=== PATIENT | female | born 1925 | race Caucasian/White ===

== ENCOUNTER 2016-11-08 17:17 | Inpatient (IN) | payer OTHER, MEDICARE ==
--- NOTE | 2016-11-08 17:19 | NUR ---
TO EKG [facility].
--- NOTE | 2016-11-08 17:24 | NUR ---
PT TO ED WITH DAUGHTERS S/P SYNCOPE. DAUGHTER STATES PT GOT UP, FELT DIZZY AND FELL DENIES HEADSTRIKE. C/O B/L KNEE PAIN. EKG DONE, PT TAKEN TO ROOM 6 VIA STRETHCER.
--- NOTE | 2016-11-08 17:42 | ED GENERAL ADULT ---
History of Present Illness General Chief Complaint: Fall Stated Complaint: KNEE,BACK INJ.SYNCOPAL EPISODE Source: patient Exam Limitations: no limitations Vital Signs & Intake/Output Vital Signs & Intake/Output Vital Signs Date Time Temp Pulse Resp B/P B/P Pulse O2 O2 Flow FiO2 Mean Ox Delivery Rate 11/08 1944 98.1 65 18 155/71 94 11/08 1734 99.2 77 20 145/85 93 Room Air Allergies Coded Allergies: Sulfa (Sulfonamide Antibiotics) (ANAPHYLAXIS 11/08/16) Reconcile Medications Aspirin (Ecotrin*) 81 MG TABLET.DR 1 TAB PO DAILY HEART/BLOOD (Reported) Calcium Carbonate/Vitamin D3 (Calcium 600 + Vit D 400 Softgl) (Unknown Strength) CAPSULE 1 TAB PO BID SUPPLEMENT (Reported) Citalopram Hydrobromide (Citalopram HBr) 10 MG TABLET 1 TAB PO DAILY MENTAL HEALTH (Reported) Dexlansoprazole (Dexilant) 60 MG CAP.DR.BP 1 CAP PO BID GI (Reported) Isosorbide Mononitrate (Isosorbide Mononitrate ER) 60 MG TAB.ER.24H 0.5 TAB PO DAILY HEART (Reported) Lisinopril 10 MG TABLET 1 TAB PO DAILY BP (Reported) Rosuvastatin Calcium (Crestor) 20 MG TABLET 1 TAB PO DAILY CHOLESTEROL ( Reported) Triage Note: PT TO ED WITH DAUGHTERS S/P SYNCOPE. DAUGHTER STATES PT GOT UP, FELT DIZZY AND FELL DENIES HEADSTRIKE. C/O B/L KNEE PAIN. EKG DONE, PT TAKEN TO ROOM 6 VIA STRETHCER. Triage Nurses Notes Reviewed? yes Onset: Just prior to arrival Duration: hour(s): (1) Timing: no prior history Injury Environment: home Severity: moderate No Modifying Factors: none HPI: Patient is an 89-year-old female with history of dementia, hypertension presenting to the emergency department with questionable syncopal episode that happened prior to arrival. According to family members they heard a thud and found her on the ground. Patient does not recall the fall at all. Unsure if she hit her head or lost consciousness. Patient now complaining about neck and back pain. Also complaining about left knee pain. Pain is worse with movement. Denies any nausea or vomiting. No chest pain palpitations or shortness of breath. (KELLEY LUTHER,YOSSI) Past History Travel History Traveled to [place] past 21 day No Medical History Any Pertinent Medical History? see below for history Cardiovascular: hypertension, hyperlipidemia Surgical History Surgical History: non-contributory Psychosocial History Who do you live with Daughter Services at Home None What is your primary language Serbian Tobacco Use: Never used ETOH Use: denies use Illicit Drug Use: denies illicit drug use Family History Hx Contributory? No (YOSSI ODELL) Review of Systems Review of Systems Constitutional: Reports: weakness. Comments Review of systems: See HPI, All other systems negative. Constitutional, no chills fever or weight loss HEENT: No visual changes no sore throat no congestion Cardiovascular: No chest pain ,palpitation , orthopnea or ankle swelling Skin, no jaundice no rashes Respiratory: No dyspnea cough sputum or hemoptysis GI: No nausea no vomiting : No dysuria No hematuria Muscle skeletal: no back pain, no neck pain, Neurologic: No numbness no quijano Psych: No stress anxiety or depression,. Heme/endocrine: No bruising no bleeding no polyuria or polydipsia Immunology: No splenectomy or history of AIDS (YOSSI ODELL) Physical Exam Physical Exam General Appearance: no apparent distress, alert, awake Comments: Well-developed well-nourished person in no acute distress HEENT: extraocular motion intact, no nystagmus. Pupils equally round and reactive to light and accommodation. Nose is atraumatic. External auditory canal and Tympanic membranes clear. Pharynx normal. No swelling or edema. Slight dry oral mucosa. Slight crusting noted over the left upper eyelid at the lash line. Neck: Supple, no lymphadenopathy, normal range of motion without pain or tenderness, mild sinus to palpation over C7. Back: Tenderness to palpation along the cervical spine, thoracic spine and lumbar spine. No step-off deformities palpated. Negative straight leg raise bilaterally. No ecchymosis or signs of trauma noted on the back. Cardiovascular: Regular rate and rhythms no murmurs rubs or gallops, normal JVP Respiratory: Chest nontender. No respiratory distress.breath sounds clear to auscultation bilaterally Abdomen: Soft, nontender nondistended, no appreciable organomegaly. Normal bowel sounds. No ascites, no rebound or guarding area. On palpation pelvis appears stable. No pain. Extremity: No edema, no calf tenderness to palpation, normal and equal pulses. Tender to palpation over the left patella, somewhat limited range of motion of left knee secondary to pain. Able to straight leg raise both legs without difficulty. Refrigeration Mechanic strength is equal and symmetric bilaterally. Muscular strength is 4 out of 5 in all extremities. Neuro: Alert oriented person and place, confused about time and situation, motor sensory normal, cranial nerves II through XII grossly intact. Skin: No appreciable rash on exposed skin, skin is warm and dry. Psych: Mood and affect is normal, poor memory. (KELLEY LUTHER,YOSSI) Progress Differential Diagnoses I considered the following diagnoses in my evaluation of the patient: CVA, TIA, dehydration, electrolyte abnormality, cardiac arrhythmia, mechanical fall, knee contusion, knee fracture, intracranial bleed Plan of Care: Orders Procedure Date/time Status Heart Healthy Diet 11/09 B Active Misc Message 11/08 2100 Active ED Holding Orders 11/08 2100 Active Vital Signs 11/08 2100 Active Code Status 11/08 2100 Active Admit to inpatient 11/08 2034 Active URINALYSIS 11/08 175 Complete Add-on Test (ER Only) 11/08 175 Active MISTAKE 11/08 173 Active Telemetry/Documentation Billing Clerk 11/08 173 Active TROPONIN LEVEL 11/08 173 Complete COMPREHENSIVE METABOLIC PANEL 11/08 173 Complete CREATINE PHOSPHOKINASE 11/08 1733 Complete CBC WITHOUT DIFFERENTIAL 11/08 173 Complete EKG 11/08 1718 Active Current Medications Sig/Santo Start time Last Medication Dose Stop Time Status Admin Ceftriaxone Sodium 1,000 MG ONCE ONE 11/08 2114 UNVr (Rocephin) 11/09 2115 Sodium Chloride 1,000 ML ONCE ONE 11/08 2114 UNVr (Normal Saline 0.9%) 11/09 0354 Laboratory Tests 11/08/161926: Urine Color YEL, Urine Clarity CLEAR, Urine pH 5.5, Ur Specific [place] >= 1.030 , Urine Protein 30 H, Urine Ketones NEG, Urine Nitrite NEG, Urine Bilirubin NEG @ICTO, Urine Urobilinogen 0.2, Ur Leukocyte Esterase TRACE H, Ur Microscopic SEDIMENT EXAMINED, Urine RBC FEW H, Urine WBC 50-75 H, Ur Epithelial Cells MOD H, Hyaline Casts FEW H, Urine Mucus MOD H, Urine Hemoglobin NEG, Urine Glucose NEG 11/08/16 175: Anion Gap 12, Estimated GFR 47 L, BUN/Creatinine Ratio 20.0, Glucose 93, Calcium 10.0, Total Bilirubin 0.5, AST 21, ALT 24, Alkaline Phosphatase 76, Creatine Kinase 62, Troponin I 0.03, Total Protein 7.3, Albumin 4.1, Globulin 3.2, Albumin/Globulin Ratio 1.3, CBC w Diff NO MAN DIFF REQ, RBC 4.95, MCV 83.1, MCH 27.1, RDW 15.0 H, MPV 9.0, Gran % 56.3, Lymphocytes % 31.3, Monocytes % 9.2 , Eosinophils % 2.0, Basophils % 1.2, Absolute Granulocytes 4.0, Absolute Lymphocytes 2.2, Absolute Monocytes 0.7 H, Absolute Eosinophils 0.1, Absolute Basophils 0.1, PUBS MCHC 32.6 L Diagnostic Imaging: Viewed by Me: Radiology Read. Discussed w/RAD: Radiology Read. Radiology Impression: PATIENT: SOLOMON CANALES PRESENT AGE: 89 PATIENT ACCOUNT NO: [id number] : [birth year] LOCATION: [facility] ORDERING PHYSICIAN: YOSSI LUTHER SERVICE DATE: 11/08/16 EXAM TYPE: RAD - XRY-PORTABLE CHEST XRAY EXAMINATION: CHEST 1 VIEW CLINICAL INFORMATION: Syncope. Cardiomegaly. COMPARISON: 01/21/2014. TECHNIQUE: An AP view of the chest is provided. FINDINGS: The cardiac silhouette is enlarged, but stable. There are neither pleural effusions nor pneumothoraces. There are no consolidations. There is mild bibasilar atelectasis. The osseous structures are stable. IMPRESSION: Mild bibasilar atelectasis. No consolidations. DICTATED BY: MARIANNE FERRARO MD DATE/TIME DICTATED:11/08/161804 FELT MACHINE MECHANIC:PEDRO DATE/TIME TRANSCRIBED:11/08/161804 CONFIDENTIAL, DO NOT COPY WITHOUT APPROPRIATE AUTHORIZATION, PATIENT: SOLOMON CANALES PRESENT AGE: 89 PATIENT ACCOUNT NO: [id number] : [birth year] LOCATION: [facility] ORDERING PHYSICIAN: YOSSI LUTHER SERVICE DATE: 11/08/16183 EXAM TYPE: RAD - XRY-KNEE COMPLETE LEFT EXAMINATION: LEFT KNEE 3 VIEWS CLINICAL INFORMATION: Left knee pain after fall. COMPARISON: None. TECHNIQUE: AP, lateral , oblique views of the left knee were obtained. FINDINGS: There are no fractures or dislocations. There is no knee joint effusion. There is no significant soft tissue swelling. There is mild superior patellar spurring. There is mild narrowing to the medial compartment. IMPRESSION: Mild degenerative change to the left knee without evidence of acute injury. DICTATED BY: MARIANNE FERRARO MD DATE/ TIME DICTATED:11/08/161908 FELT MACHINE MECHANIC:PEDRO DATE/TIME TRANSCRIBED: 11/08/161908 CONFIDENTIAL, DO NOT COPY WITHOUT APPROPRIATE AUTHORIZATION. CXR Impression: ATIENT: SOLOMON CANALES PRESENT AGE: 89 PATIENT ACCOUNT NO: [id number] : [birth year] LOCATION: [facility] ORDERING PHYSICIAN: YOSSI LUTHER SERVICE DATE: 11/08/16 EXAM TYPE: RAD - XRY- PORTABLE CHEST XRAY EXAMINATION: CHEST 1 VIEW CLINICAL INFORMATION: Syncope. Cardiomegaly. COMPARISON: 01/21/2014. TECHNIQUE: An AP view of the chest is provided. FINDINGS: The cardiac silhouette is enlarged, but stable. There are neither pleural effusions nor pneumothoraces. There are no consolidations. There is mild bibasilar atelectasis. The osseous structures are stable. IMPRESSION: Mild bibasilar atelectasis. No consolidations. DICTATED BY: MARIANNE FERRARO MD DATE/TIME DICTATED:11/08/161804 FELT MACHINE MECHANIC:PEDRO Initial ED EKG: nsr with pvc, 74 bpm Comments: On arrival patient's vitals are stable, neurologically intact but patient is only oriented to person, confused about time and situation. This is baseline for patient. Unclear history. Family informed of all imaging results. Cannot exclude TIA or other process causing syncope. No acute findings on CT scan. Patient will be admitted for observation telemetry for syncope. Rule out CVA. Patient may need MRI in the morning. Physical therapy consultation. Discharge at this time could be medically harmful as patient can go home and follow again. (KELLEY LUTHER,YOSSI) Comments: 11/08/2016 9:15:21 PM I have updated her and her family on test results. IV fluids ordered along with a dose of Rocephin given the appearance of the urine. (JASWINDER AMADOR,NIKA D) Departure Departure Disposition: STILL A PATIENT Condition: Stable Clinical Impression Primary Impression: Syncope Qualifiers: Syncope type: unspecified Qualified Code: R55 - Syncope and collapse Referrals: TANIA ARELLANO MD (PCP/Family) Departure Forms: Customer Survey General Discharge Information (KELLEY LUTHER,YOSSI) Admission Note Spoke With: ОЛЕГ SOLOMON MD Documentation of Exam: Documentation of any treatments & extenuating circumstances including Concerns Regarding Discharge (functional status, medication knowledge or non-compliance, living conditions, etc.) that warrant an admission rather than observation: Patient presents for evaluation of injury sustained status post fall. At this point it is unclear if the patient had a true fainting episode or not. A fainting episode would place this patient at risk of cardiac dysrhythmia with subsequent hypotension and possibly even . The patient a poor candidate for outpatient management as I think it would be appropriate for her to be on continuous cardiac catheterization technologist to assess for possible dysrhythmia. She could potentially return in worse clinical condition and a particular additional injury status post fall. In addition patient should have cardiology consultation to rule out valve disease or cardiomyopathy. In addition the patient has a urinalysis strongly suggestive of urinary tract infection, placing her at risk of altered mental status and urosepsis. This will require aggressive management with IV antibiotics. Finally the patient has elevations in BUN and creatinine consistent with volume depletion and IV fluids should be administered. Given the patient's age and medical comorbidities I feel she'll require a multiple day hospitalization. (JASWINDER AMADOR,NIKA Antoine)
--- NOTE | 2016-11-08 18:00 | NUR ---
LABS DRAWN AND SENT, LAV,SST,BLUE,PINK,DECKER TOP SENT AT THIS TIME.
[2016-11-08 18:06] LABS: ABSOLUTE BASOPHIL COUNT 0.1 /CUMM (0.0-0.2); ABSOLUTE EOSINOPHIL COUNT 0.1 /CUMM (0.0-0.7); ABSOLUTE LYMPH COUNT 2.2 /CUMM (1.2-3.4); ABSOLUTE MONOCYTE COUNT 0.7 /CUMM (0.10-0.60); BASOPHIL % 1.2 % (0.0-2.0); GRANULOCYTE % 56.3 % (42.2-75.2); HEMATOCRIT 41.2 % (37-47); MEAN CORPUSCULAR HGB 27.1 PG (27.0-31.0); MEAN CORPUSCULAR HGB CONC 32.6 G/DL (33.0-37.0); MEAN CORPUSCULAR VOLUME 83.1 FL (81.0-99.0); PLATELET COUNT 192 /CUMM (130-400); RED BLOOD CELL CT 4.95 /CUMM (4.20-5.40); WHITE BLOOD CELL COUNT 7.1 /CUMM (4.8-10.8)
--- NOTE | 2016-11-08 18:09 | RADIOLOGY REPORT ---
EXAMINATION: CHEST 1 VIEW CLINICAL INFORMATION: Syncope. Cardiomegaly. COMPARISON: 01/21/2014. TECHNIQUE: An AP view of the chest is provided. FINDINGS: The cardiac silhouette is enlarged, but stable. There are neither pleural effusions nor pneumothoraces. There are no consolidations. There is mild bibasilar atelectasis. The osseous structures are stable. IMPRESSION: Mild bibasilar atelectasis. No consolidations.
[2016-11-08] MEDS ORDERED: CITALOPRAM HBR10 MG PO (18:10)
[2016-11-08] MEDS ORDERED: ISOSORBIDE MONO60 M1 PO (18:11)
[2016-11-08] MEDS ORDERED: LISINOPRIL10 M1 PO (18:11)
[2016-11-08] MEDS ORDERED: CRESTOR20 M2 PO (18:11)
[2016-11-08] MEDS ORDERED: DEXILANT60 M1 PO (18:11)
[2016-11-08] MEDS ORDERED: CALCIUM 600 +1 EAC4 PO (18:12)
[2016-11-08] MEDS ORDERED: ASPIRIN EC81 M1 PO (18:12)
--- NOTE | 2016-11-08 18:48 | CT SCAN REPORT ---
EXAMINATIONS: CT HEAD WITHOUT CONTRAST AND CT CERVICAL SPINE WITHOUT CONTRAST AND CT THORACIC SPINE WITHOUT CONTRAST AND CT LUMBAR SPINE WITHOUT CONTRAST CLINICAL INFORMATION: Pain following injury. Trauma to head. Trauma to back. COMPARISON: None. TECHNIQUE: Contiguous helical images of the brain were obtained without IV contrast. Contiguous helical images of the cervical, thoracic and lumbar spine were obtained without IV contrast. Multiplanar reconstructions were performed. DLP: 854 mGy-cm. FINDINGS: There are no pathologic extra-axial fluid collections. The lateral, third, fourth ventricles are prominent, but age-appropriate and concordant with the appearance of the sulci. There is no evidence for acute intraparenchymal hemorrhage or infarct. There is periventricular low-attenuation present indicative of small vessel disease. There is neither mass nor mass effect. There is no shift of midline structures. The paranasal sinuses and mastoid air cells are clear. There are no osseous lesions. The cervical vertebra are in normal alignment. Disc heights and vertebral heights are well-preserved. There are no fractures. There is no prevertebral soft tissue swelling. There is anterior osteophyte formation within the mid to lower cervical spine. The thoracic and lumbar vertebra are in normal alignment. There is complete disc height loss at L4/L5 with partial fusion of the vertebral bodies. Disc heights and vertebral body heights are otherwise well-preserved. There are no acute fractures demonstrable. There is mild anterior osteophyte formation within the thoracic spine. Partially visualized is sigmoid diverticulosis without evidence of diverticulitis. There is no cervical lymphadenopathy. The visualized lung apices are clear. Within both lung bases, there is peripheral interlobular septal thickening with some subpleural cyst formation. IMPRESSION: No evidence for acute intracranial injury. No evidence for acute injury to the cervical spine. Degenerative change as stated above. Interstitial changes within both lower lobes.
--- NOTE | 2016-11-08 19:14 | RADIOLOGY REPORT ---
EXAMINATION: LEFT KNEE 3 VIEWS CLINICAL INFORMATION: Left knee pain after fall. COMPARISON: None. TECHNIQUE: AP, lateral, oblique views of the left knee were obtained. FINDINGS: There are no fractures or dislocations. There is no knee joint effusion. There is no significant soft tissue swelling. There is mild superior patellar spurring. There is mild narrowing to the medial compartment. IMPRESSION: Mild degenerative change to the left knee without evidence of acute injury.
--- NOTE | 2016-11-08 19:32 | NUR ---
BETINA LUTZ SENT TO LAB
--- NOTE | 2016-11-08 22:27 | NUR ---
PT MEDICATED WITH NS BOLUS AND ROCEPHIN PER EMAR. PT PROVIDED WITH CALL SAN AND EDUCATED NOT GET UP WITHOUT HELP, PT VERBALIZES UNDERSTANDING.
[2016-11-09 00:33] VITALS: BP 168/80
--- NOTE | 2016-11-09 01:12 | History & Physical ---
NINA KITCHEN MD 11/09/16 0112: General Information and HPI MD Statement: I have seen and personally examined SOLOMON CANALES and documented this H&P. The patient is a 89 year old F who presented with a patient stated chief complaint of fall. Source of Information: patient, family, old records Exam Limitations: dementia History of Present Illness: 89 year old female with past medical history of melanoma, hypertension, hyperlipidemia and dementia presents with chief complaint of unwitnessed fall. Patient lives at home and her daughter assists her in iADLs and medication management. She has baseline dementia and uses a walker at home. Her family heard a loud noise and found the patient on the floor. They denied any post ictal confusion, loss of consciousness, or urinary or bowel incontinence. They were unsure if there were any head trauma as a result of the fall. Patient was complaining of some intermittent left-sided chest pain but denies any other symptoms. Allergies/Medications Allergies: Coded Allergies: Sulfa (Sulfonamide Antibiotics) (ANAPHYLAXIS 11/08/16) Home Med list Aspirin (Ecotrin*) 81 MG TABLET.DR 1 TAB PO DAILY HEART/BLOOD (Reported) Calcium Carbonate/Vitamin D3 (Calcium 600 + Vit D 400 Softgl) (Unknown Strength) CAPSULE 1 TAB PO BID SUPPLEMENT (Reported) Citalopram Hydrobromide (Citalopram HBr) 10 MG TABLET 1 TAB PO DAILY MENTAL HEALTH (Reported) Dexlansoprazole (Dexilant) 60 MG CAP.DR.BP 1 CAP PO BID GI (Reported) Isosorbide Mononitrate (Isosorbide Mononitrate ER) 60 MG TAB.ER.24H 0.5 TAB PO DAILY HEART (Reported) Lisinopril 10 MG TABLET 1 TAB PO DAILY BP (Reported) Rosuvastatin Calcium (Crestor) 20 MG TABLET 1 TAB PO DAILY CHOLESTEROL ( Reported) Compliance With Home Meds: GOOD Past History Travel History Traveled to [place] past 21 day No Medical History Cardiovascular: hypertension, hyperlipidemia Surgical History Surgical History: non-contributory Past Family/Social History Psychosocial History Services at Home: None ETOH Use: denies use Illicit Drug Use: denies illicit drug use Review of Systems Review of Systems Constitutional: Reports: see HPI. Exam & Diagnostic Data Last 24 Hrs of Vital Signs/I&O Vital Signs Date Time Temp Pulse Resp B/P B/P Pulse O2 O2 Flow FiO2 Mean Ox Delivery Rate 11/09 0033 62 16 168/80 96 Room Air 11/08 194 98.1 65 18 155/71 94 11/08 1734 99.2 77 20 145/85 93 Room Air Intake & Output 11/09 0800 11/09 0000 11/08 1600 Intake Total 1000 Output Total 350 Balance -350 1000 Intake, IV 1000 Output, Urine 350 Physical Exam General Appearance Alert, Oriented X3, Cooperative, No Acute Distress Skin No Rashes, No Breakdown Skin Temp/Moisture Exam: Warm/Dry Cardiovascular Regular Rate, Normal S1, Normal S2, No Murmurs Lungs Clear to Auscultation, Normal Air Movement Abdomen Normal Bowel Sounds, Soft, No Tenderness, No Masses Neurological Strength at 5/5 X4 Ext, Normal Tone, Sensation Intact, Cranial Nerves 3-12 NL Extremities No Edema, Normal Pulses, RLE melanoma excision and skin graft Last 24 Hrs of Labs/John: Laboratory Tests 11/08/161926: Urine Color YEL, Urine Clarity CLEAR, Urine pH 5.5, Ur Specific [place] >= 1.030 , Urine Protein 30 H, Urine Ketones NEG, Urine Nitrite NEG, Urine Bilirubin NEG @ICTO, Urine Urobilinogen 0.2, Ur Leukocyte Esterase TRACE H, Ur Microscopic SEDIMENT EXAMINED, Urine RBC FEW H, Urine WBC 50-75 H, Ur Epithelial Cells MOD H, Hyaline Casts FEW H, Urine Mucus MOD H, Urine Hemoglobin NEG, Urine Glucose NEG 11/08/16 175: Anion Gap 12, Estimated GFR 47 L, BUN/Creatinine Ratio 20.0, Glucose 93, Calcium 10.0, Total Bilirubin 0.5, AST 21, ALT 24, Alkaline Phosphatase 76, Creatine Kinase 62, Troponin I 0.03, Total Protein 7.3, Albumin 4.1, Globulin 3.2, Albumin/Globulin Ratio 1.3, CBC w Diff NO MAN DIFF REQ, RBC 4.95, MCV 83.1, MCH 27.1, RDW 15.0 H, MPV 9.0, Gran % 56.3, Lymphocytes % 31.3, Monocytes % 9.2 , Eosinophils % 2.0, Basophils % 1.2, Absolute Granulocytes 4.0, Absolute Lymphocytes 2.2, Absolute Monocytes 0.7 H, Absolute Eosinophils 0.1, Absolute Basophils 0.1, PUBS MCHC 32.6 L Microbiology 11/08 1926 URINE ROUT: Urine Culture - RECD Diagnostic Data EKG Results nsr, lvh, lad Assessment/Plan Assessment: 89 year old female with past medical history of melanoma, hypertension, hyperlipidemia and dementia who presents to the ED after an unwitnessed fall at home. 1. Unwitnessed fall: patient denies any prodromal symptoms associated with fall Monitor on telemetry will rule out arrhythmia/vasovagal syncope/orthostatic hypotension Check orthostatic vital signs Follow up troponin/EKG, first was negative for ischemia or arrythmia Continue ASA and Imdur Cardiology consult Consider echocardiogram and carotid doppler 2. Acute Kidney Injury: Cr 1.1 currently, baseline ~0.8, BUN/Cr ratio 20, [place] likely prerenal, dehydration may have contributed to fall, will hydrate and reassess Hold JOYA inhibitor NS @ 75cc/hr Trend renal function, BUN and Cr 3. Hypertension: Continue Imdur, lisinopril on hold 4. Asymptomatic bacteriuria: Patient had urinalysis suggestive of infection Received one dose of ceftriaxone in ED Urine culture will follow up 5. Hyperlipidemia: Statin therapy, lipitor 40mg 6. Continue home medications: Celexa and Prilosec PT Evaluation Heart healthy diet DVT ppx-heparin Full code As Ranked By This Provider Problem List: 1. Syncope Qualifiers Syncope type: unspecified Qualified Code: R55 - Syncope and collapse 2. Benign essential hypertension Core Measures/Miscellaneous Acute Coronary Syndrome ACS Diagnosis: No Cerebrovascular Accident CVA/TIA Diagnosis: No Congestive Heart Failure CHF Diagnosis: No VTE (View Protocol) VTE Risk Factors: Acute medical illness, Age > 40 No [facility] VTE prophylaxis d/t: No contraindications No VTE Pharm Prophylaxis d/t: No contraindications VTE Diagnosis: No VTE Type: NONE VTE Confirmed by (Test): NONE Sepsis (View Protocol) Severe Sepsis Present: No Septic Shock Septic Shock Present: No Miscellaneous Documentation Attending Case Discussed With: TANIA ARELLANO MD Primary Care Physician: TANIA ARELLANO MD Patient sees these Specialists none Level of Patient Care: Telemetry TYSON COLLIER 11/09/16 0113: Resident Review Statement Resident Statement: examined this patient, discussed with chemistry intern, agreed with chemistry intern Other Findings: Patient is 89-year-old Nauruan speaking female with past medical history significant for malignant melanoma status post excision and grafting, hypertension, dyslipidemia and dementia brought in the ER by family after an unwitnessed fall. Patient was very confused and was not able to give his proper history and most of the history was taken from her daughter Anai on phone. According to her patient lived at home and all her care was taken by her daughter. She had baseline dementia and use walker for ambulation at home. Today her family heard her third and when they went in the room her mother on the floor but they denied any confusion, loss of consciousness, any pre-or post fall is urinary or bowel incontinence. Patient was complaining of some off-and- on left-sided chest pain. No history of recent fever, chills, dizziness, headache, chest pain, palpitations or any sick contacts. It wasn't sure if she hit her head or not. The signs and admission were temperature 99.2, pulse 97, respiratory rate 20, blood pressure 145/85 and she was saturating to 93% on room air. Labs were WBC count 7.1, hemoglobin 13.4, hematocrit 41.2, platelet count 192, Sodium 138, potassium 4.1, BUNs 22, creatinine 1.1, urinalysis showed trace leukocyte esterase, WBC count 50-75 with moderate epithelial cells, few hyaline casts and moderate urine mucus. On imaging studies including CT head, chest x-ray, cervical, lumbar and thoracic spine along with x-ray knee negative for any acute fracture or pathology EKG showed normal sinus rhythm with no acute ST-T wave changes On physical examination Patient is alert but not oriented to place Head atraumatic Neck supple Chest clear to auscultate Heart S1-S2 normal with no added sounds Abdomen soft. No organomegaly Lower extremities showed no edema or cyanosis No neurological deficit noted. Assessment and plan 89-year-old Nauruan female with history of malignant melanoma, hypertension, dyslipidemia and dementia who came after an unwitnessed fall and we will rule out any cardiac arrhythmias/orthostatic hypotension/vasovagal syncope. On admission her urine cement was dirty and was given a dose of ceftriaxone in ER. Problem list 1. Unwitnessed fall will rule out arrhythmia/vasovagal syncope/orthostatic hypotension 2. History of hypertension 3. AK I most likely due to dehydration/UTI 4. Asymptomatic bacteriuria 5. History of dementia 6. History of dyslipidemia 7. History of malignant melanoma left lower extremity status post excision and graft Plan 1. We will observe patient on telemetry floor for 24 hours to rule out any arrhythmias 2. Her first set of troponin was negative we will consider repeating another . 3. Her creatinine is slightly higher than normal we will hold lisinopril and will hydrate her and repeat labs in a.m. 4. Urinalysis on admission shows leukocyte esterase and 50-75 WBCs. Patient was given ceftriaxone in ER and we will continue and sent a urine culture. Night any symptoms but given her dementia we would treat her UTI. 5. We will continue her home medications except lisinopril but we will resume on discharge. 6. We'll consider physical therapy evaluation in a.m. 7. We will consider cardiology evaluation in a.m. if needed 8. Orthostatics were done in ER and they were borderline positive regarding falls as it increased from 77-89 from lying to sitting. We will repeat orthostatics in a.m. after hydrating her. Patient is full code Pharmacological DVT prophylaxis Heart healthy diet EILEEN AMADOR,[facility] 11/09/16 1001: Attending MD Review Statement Attending Statement Attending MD Statement: examined this patient, discuss w/resident/PA/MOCK UP MAKER, agreed w/resident/PA/MOCK UP MAKER, reviewed EMR data (avail)
--- NOTE | 2016-11-09 02:06 | NUR ---
PT TO BEDSIDE COMMODE WITH VERY SLOW MOVEMENT AND MINIMAL ASSIST OF ONE. VOIDED 350 CC'S. URINE EARLY CHILDHOOD EDUCATION WORKER YELLOW THAN PREVIUS VOID. PT BACK TO BED. NS INFUSING AT 75 ML/HR. MEDICATED WIHT 5000 UNITS HEPARIN SC ORDERED. LIGHTS DIMMED FOR COMFORT
--- NOTE | 2016-11-09 05:45 | NUR ---
PT OOB TO BEDSIDE COMMODE. SLOW AND STEADY, INDEPENDENTLY. BACK TO BED
--- NOTE | 2016-11-09 06:06 | NUR ---
BLOOD DRAWN AND SENT TO LAB.
[2016-11-09 06:11] LABS: ABSOLUTE BASOPHIL COUNT 0 /CUMM (0.0-0.2); ABSOLUTE EOSINOPHIL COUNT 0.2 /CUMM (0.0-0.7); ABSOLUTE LYMPH COUNT 1.7 /CUMM (1.2-3.4); ABSOLUTE MONOCYTE COUNT 0.5 /CUMM (0.10-0.60); BASOPHIL % 0.5 % (0.0-2.0); EOSINOPHIL % 2.5 % (0-5); GRANULOCYTE % 62.3 % (42.2-75.2); HEMATOCRIT 39.2 % (37-47); MEAN CORPUSCULAR HGB 27.3 PG (27.0-31.0); MEAN CORPUSCULAR HGB CONC 32.9 G/DL (33.0-37.0); MEAN PLATELET VOLUME 8.5 FL (7.4-10.4); PLATELET COUNT 158 /CUMM (130-400); RED BLOOD CELL CT 4.73 /CUMM (4.20-5.40); WHITE BLOOD CELL COUNT 6.4 /CUMM (4.8-10.8)
--- NOTE | 2016-11-09 08:36 | NUR ---
PT CONTINUES TO SLEEP, WILL MEDICATE WITH PRILOSEC ONCE AWAKE
[2016-11-09 09:04] VITALS: BP 158/76
--- NOTE | 2016-11-09 09:09 | NUR ---
PT REFUSED HER PRILOSEC MEDICATION
--- NOTE | 2016-11-09 09:24 | NUR ---
DR ARELLANO IN ROOM TO KALINA.
--- NOTE | 2016-11-09 09:54 | Admission Certification ---
Admission Certification Certification Statement - As attending physician, I certify that at the time of - admission, based on clinical presentation, severity of - symptoms, need for further diagnostic testing and - therapeutic interventions, and risk of adverse outcomes - without in-hospital treatment, in my clinical assessment, - this patient requires an acute hospital stay for a minimum - of two nights or longer. I have also considered psychsocial - factors such as support system, advanced age, financial - issues, cognitive issues, and failed out-patient treatments, - past re-admission history, safety of patient, and lack of - compliance as applicable. Specific rationale supporting this admission is: Syncope
--- NOTE | 2016-11-09 10:01 | PN- Att Addend ---
Attending Addendum Attending Brief Note Patient on evaluation this morning has no complaints except for requesting for discharge home. She denies passing out or having lightheadedness or dizziness prior to her fall. However history is somewhat difficult to get. General Appearance: Alert, No Acute Distress Skin: Grossly normal HEENT: PEERLA Neck: Supple, No JVD Cardiovascular: Regular Rate, Normal S1, Normal S2, No Murmurs Lungs: Clear to Auscultation, Normal Air Movement Abdomen: Normal Bowel Sounds, Soft, No Tenderness Neurological: Normal Speech, Strength at 5/5 X4 Ext, Cranial Nerves 3-12 NL, Reflexes 2+ Extremities: No Clubbing, No Cyanosis, No Edema Vascular: Normal Pulses Assessment 89-year-old female with history of melanoma, hypertension, dyslipidemia and dementia who recently lost her about 3 months ago now presenting with an unwitnessed fall. Patient was found on the floor by her family. Based on the limited history given to me by the patient she did not lose consciousness or have any prodromal syndrome prior to passing out. Her telemetry has not shown any arrhythmias since admission. Patient does not give any history of urinary discomfort. She does not have fever or leukocytosis and are likely has a UTI. We will follow off antibiotics and physical therapy evaluation for STR placement. In the meantime will monitor on telemetry and check orthostatics. Plan Discontinue antibiotics Check orthostatics Monitor on telemetry Continue home medications PT evaluation DVT prophylaxis Current Medications Sig/Santo Start time Last Medication Dose Route Stop Time Status Admin Acetaminophen 650 MG Q6P PRN 11/09 0115 AC PO Acetaminophen/ 1 TAB Q6P PRN 11/09 0115 AC Hydrocodone Bitart PO Aspirin Buffered 81 MG DAILY 11/09 1000 AC PO Atorvastatin Calcium 40 MG 1700 11/09 1700 AC PO Ceftriaxone Sodium 1,000 MG DAILY 11/09 1000 AC IV Ceftriaxone Sodium 0 .STK-MED ONE 11/08 2221 DC .ROUTE Ceftriaxone Sodium 1,000 MG ONCE ONE 11/08 2114 DC 11/08 IV 11/08 Citalopram 10 MG DAILY 11/09 1000 AC Hydrobromide PO Heparin Sodium 0 .STK-MED ONE 11/09 0150 DC (Porcine) .ROUTE Heparin Sodium 5,000 UNIT Q8 11/09 0109 AC 11/09 (Porcine) SC 0150 Isosorbide 30 MG DAILY 11/09 1000 AC Mononitrate PO Omeprazole 40 MG DAILY AC 11/09 0700 AC PO Oxycodone HCl 10 MG Q6P PRN 11/09 0115 AC PO Sodium Chloride 1,000 ML Q13H 11/09 0115 AC 11/09 IV 0150 Sodium Chloride 1,000 ML ONCE ONE 11/08 2114 DC 11/08 IV 11/09 0354 2226 Laboratory Tests 11/09 11/08 0605 1927 Chemistry Sodium (137 - 145 mmol/L) 137 Potassium (3.5 - 5.1 mmol/L) 3.9 Chloride (98 - 107 mmol/L) 105 Carbon Dioxide (22 - 30 mmol/L) 25 Anion Gap (5 - 16) 7 BUN (7 - 17 mg/dL) 16 Creatinine (0.5 - 1.0 mg/dL) 0.9 Estimated GFR (>60 ml/min) 59 L BUN/Creatinine Ratio (7 - 25 %) 17.8 Troponin I (< 0.11 ng/ml) 0.04 Hematology CBC w Diff NO MAN DIFF REQ WBC (4.8 - 10.8 /CUMM) 6.4 RBC (4.20 - 5.40 /CUMM) 4.73 Hgb (12.0 - 16.0 G/DL) 12.9 Hct (37 - 47 %) 39.2 MCV (81.0 - 99.0 FL) 83.0 MCH (27.0 - 31.0 PG) 27.3 RDW (11.5 - 14.5 %) 15.0 H Plt Count (130 - 400 /CUMM) 158 MPV (7.4 - 10.4 FL) 8.5 Gran % (42.2 - 75.2 %) 62.3 Lymphocytes % (20.5 - 51.1 %) 26.9 Monocytes % (1.7 - 9.3 %) 7.8 Eosinophils % (0 - 5 %) 2.5 Basophils % (0.0 - 2.0 %) 0.5 Absolute Granulocytes (1.4 - 6.5 /CUMM) 4.0 Absolute Lymphocytes (1.2 - 3.4 /CUMM) 1.7 Absolute Monocytes (0.10 - 0.60 /CUMM) 0.5 Absolute Eosinophils (0.0 - 0.7 /CUMM) 0.2 Absolute Basophils (0.0 - 0.2 /CUMM) 0 PUBS MCHC (33.0 - 37.0 G/DL) 32.9 L Urines Urine Color (YEL,AMB,STR) YEL Urine Clarity (CLEAR) CLEAR Urine pH (5.0 - 8.0) 5.5 Ur Specific [place] (1.001 - 1.035) >= 1.030 Urine Protein (NEG,<30 MG/DL) 30 H Urine Ketones (NEG) NEG Urine Nitrite (NEG) NEG Urine Bilirubin (NEG) NEG@ICTO Urine Urobilinogen (0.1 - 1.0 EU/dl) 0.2 Ur Leukocyte Esterase (NEG) TRACE H Ur Microscopic SEDIMENT EXAMINED Urine RBC (0 - 5 /HPF) FEW H Urine WBC (0 - 2 /HPF) 50-75 H Ur Epithelial Cells (NONE,FEW) MOD H Hyaline Casts (0/LPF) FEW H Urine Mucus (FEW,NONE) MOD H Urine Hemoglobin (NEG) NEG Urine Glucose (N MG/DL) NEG 11/08 1758 Chemistry Sodium (137 - 145 mmol/L) 138 Potassium (3.5 - 5.1 mmol/L) 4.1 Chloride (98 - 107 mmol/L) 103 Carbon Dioxide (22 - 30 mmol/L) 22 Anion Gap (5 - 16) 12 BUN (7 - 17 mg/dL) 22 H Creatinine (0.5 - 1.0 mg/dL) 1.1 H Estimated GFR (>60 ml/min) 47 L BUN/Creatinine Ratio (7 - 25 %) 20.0 Glucose (65 - 99 mg/dL) 93 Calcium (8.4 - 10.2 mg/dL) 10.0 Total Bilirubin (0.2 - 1.3 mg/dL) 0.5 AST (14 - 36 U/L) 21 ALT (9 - 52 U/L) 24 Alkaline Phosphatase (<127 U/L) 76 Creatine Kinase (30 - 135 U/L) 62 Troponin I (< 0.11 ng/ml) 0.03 Total Protein (6.3 - 8.2 g/dL) 7.3 Albumin (3.5 - 5.0 g/dL) 4.1 Globulin (1.9 - 4.2 gm/dL) 3.2 Albumin/Globulin Ratio (1.1 - 2.2 %) 1.3 Hematology CBC w Diff NO MAN DIFF REQ WBC (4.8 - 10.8 /CUMM) 7.1 RBC (4.20 - 5.40 /CUMM) 4.95 Hgb (12.0 - 16.0 G/DL) 13.4 Hct (37 - 47 %) 41.2 MCV (81.0 - 99.0 FL) 83.1 MCH (27.0 - 31.0 PG) 27.1 RDW (11.5 - 14.5 %) 15.0 H Plt Count (130 - 400 /CUMM) 192 MPV (7.4 - 10.4 FL) 9.0 Gran % (42.2 - 75.2 %) 56.3 Lymphocytes % (20.5 - 51.1 %) 31.3 Monocytes % (1.7 - 9.3 %) 9.2 Eosinophils % (0 - 5 %) 2.0 Basophils % (0.0 - 2.0 %) 1.2 Absolute Granulocytes (1.4 - 6.5 /CUMM) 4.0 Absolute Lymphocytes (1.2 - 3.4 /CUMM) 2.2 Absolute Monocytes (0.10 - 0.60 /CUMM) 0.7 H Absolute Eosinophils (0.0 - 0.7 /CUMM) 0.1 Absolute Basophils (0.0 - 0.2 /CUMM) 0.1 PUBS MCHC (33.0 - 37.0 G/DL) 32.6 L Vital Signs Date Time Temp Pulse Resp B/P B/P Pulse O2 O2 Flow FiO2 Mean Ox Delivery Rate 11/09 0904 97.4 62 15 158/76 95 Room Air 11/09 0730 97.4 62 15 181/96 96 Room Air 11/09 0615 97.4 62 16 171/76 96 Room Air 11/09 0033 98.1 62 16 168/80 96 Room Air 11/08 1944 98.1 65 18 155/71 94 11/08 1734 99.2 77 20 145/85 93 Room Air
[2016-11-09 10:07] VITALS: BP 158/76
--- NOTE | 2016-11-09 10:07 | NUR ---
MEDICATED WITH IMDUR, CELEXA, ASPIRIN, AND ROCEPHIN (SEE MAR)
--- NOTE | 2016-11-09 11:38 | Patient Discharge Instructions ---
Discharge Instructions General Discharge Information You were seen/treated for: Unwitnessed fall Special Instructions: #1 please follow-up with your PCP within 1 week of discharge Acute Coronary Syndrome Inclusion Criteria At DC or during hospital stay patient has or had the following: ACS DIAGNOSIS No Discharge Core Measures Meds if any: Prescribed or Continued at Discharge Meds if any: NOT Prescribed or Continued at Discharge Congestive Heart Failure Inclusion Criteria At DC or during hospital stay patient has or had the following: CHF DIAGNOSIS No Discharge Core Measures Meds if any: Prescribed or Continued at Discharge Meds if any: NOT Prescribed or Continued at Discharge Cerebrovascular accident Inclusion Criteria At DC or during hospital stay patient has or had the following: CVA/TIA Diagnosis No Discharge Core Measures Meds if any: Prescribed or Continued at Discharge Meds if any: NOT Prescribed or Continued at Discharge Venous thromboembolism Inclusion Criteria VTE Diagnosis No VTE Type NONE VTE Confirmed by (Test) NONE Discharge Core Measures - Per Current guidelines, there needs to be overlap - treatment for the first 5 days of Warfarin therapy. - If discharged on Warfarin prior to 5 days of - overlap therapy, the patient will need to be - assessed for post discharge needs including - *Post discharge parental anticoagulation - *Warfarin and/or parental anticoagulation education - *Follow up date to check INR post discharge At least 5 days overlap therapy as Inpatient No Meds if any: Prescribed or Continued at Discharge Note: Overlap Therapy is Warfarin and Anticoagulant Meds if any: NOT Prescribed or Continued at Discharge
--- NOTE | 2016-11-09 11:55 | NUR ---
11/09 CASE MGMT- CALL FROM DR PARKER INQUIRING IF PT IS HHS OR STR? SPO HUSEYIN GUERRA FROM PT AND SOMEONE WILL BE DOWN TO EVALUATE PT. CASE MGMT WILL CONTINUE TO FOLLOW.
--- NOTE | 2016-11-09 11:59 | PN-Observation ---
Assessment/Plan Assessment: 89 year old female with past medical history of melanoma, hypertension, hyperlipidemia and dementia who presents to the ED after an unwitnessed fall at home. #Unwitnessed fall: - patient denies any prodromal symptoms or confusion associated with fall, - history was hard to be obtained in details as the patient is Faroese speaking , will confirm with the family -Monitor on telemetry will rule out arrhythmia/vasovagal syncope/orthostatic hypotension -Check orthostatic vital signs Follow up troponin/EKG were negative for ischemia which r/0 ACS also no arrythemia was detected over night Continue ASA and Imdur Cardiology consult Consider echocardiogram and carotid doppler #Acute Kidney Injury: improved Cr 0.8<---1.1 currently, [place] likely prerenal due to dehydration may have contributed to fall, improved after rehydration and holding ACEI NS @ 75cc/hr Trend renal function, BUN and Cr # Hypertension: Continue Imdur, lisinopril on hold # Asymptomatic bacteriuria: Patient had urinalysis suggestive of infection DC antibiotics as per Dr Hollins Urine culture will follow up 5. Hyperlipidemia: Statin therapy, lipitor 40mg 6. Continue home medications: Celexa and Prilosec PT Evaluation Heart healthy diet
--- NOTE | 2016-11-09 12:08 | Discharge Summary ---
Visit Information Visit Dates Admission Date: 11/08/16 Hospital Course Course Attending Physician: TANIA ARELLANO MD Primary Care Physician: TANIA ARELLANO MD Hospital Course: Patient is 89-year-old Albanian speaking female with past medical history significant for malignant melanoma status post excision and grafting, hypertension, dyslipidemia and dementia brought in the ER by family after an unwitnessed fall. On imaging studies including CT head, chest x-ray, cervical, lumbar and thoracic spine along with x-ray knee negative for any acute fracture or pathology EKG showed normal sinus rhythm with no acute ST-T wave changes Patient was treated in the hospital for: #Unwitnessed fall: Differentials were arrhythmia, vasovagal syncope, and orthostatic hypotension. orthostatics were done in ER and they were borderline positive.Patient was closely observed on the telemetry floor overnight to monitor for arrhythmias. No arrhythmias were noted on the monitor. ACS was ruled out with 3 sets of troponins and EKG. Patient was hydrated with IV fluids overnight. Orthostatics improved after hydration. Patient was asked to follow up with PCP within 1 week of discharge. Physical therapy evaluated the patient and cleared her for home with services. # AK I possibly due to dehydration:Cr 1.1 at admission, baseline ~0.8 She was hydrated with IV fluids with improvement of the kidney function on repeat labs. Nephrotoxins were avoided. Patient should be adequately hydrated at home once she is discharged from the hospital. The above plan was discussed with the daughter. #Asymptomatic bacteriuria: Urine was dirty at admission. Patient had no symptoms of UTI. She got ceftriaxone in the ED .Urine cultures were negative. Antibiotics was discontinued as patient was asymptomatic. She was hydrated with IV fluids and discharged to home after being cleared by PT. Patient is full code Pharmacological DVT prophylaxis Heart healthy diet Allergies: Coded Allergies: Sulfa (Sulfonamide Antibiotics) (ANAPHYLAXIS 11/08/16) Discharge Instructions Medications at Discharge Discharge Medications: Continue taking these medications: Citalopram Hydrobromide (Citalopram HBr) 10 MG TABLET 1 Tablet ORAL DAILY Qty = 90 Comments: Last Taken: 11/09/16 Time: 1000AM Rosuvastatin Calcium (Crestor) 20 MG TABLET 1 Tablet ORAL DAILY Qty = 90 Comments: Last Taken: 11/09/16 Time: 1000AM Lisinopril (Lisinopril) 10 MG TABLET 1 Tablet ORAL DAILY Qty = 90 Comments: NOT GIVEN Isosorbide Mononitrate (Isosorbide Mononitrate ER) 60 MG TAB.ER.24H 0.5 Tablet ORAL DAILY Qty = 90 Comments: Last Taken: 11/09/16 Time: 1000AM Dexlansoprazole (Dexilant) 60 MG BJ.BP 1 Capsule ORAL TWICE DAILY Qty = 60 Comments: NOT GIVEN Aspirin (Ecotrin*) 81 MG TABLET. 1 Tablet ORAL DAILY Comments: Last Taken: 11/09/16 Time: 1000AM Calcium Carbonate/Vitamin D3 (Calcium 600 + Vit D 400 Softgl) (Unknown Strength) CAPSULE 1 Tablet ORAL TWICE DAILY Comments: NOT GIVEN
--- NOTE | 2016-11-09 13:04 | NUR ---
11/09 CASE MGMT- PT STATES PT AT BASELINE AND CAN BE D/C WITH HOME PT. 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 PT AND T DAUGHTER STATES PT HAS HAD VISITNG NURSES IN THE PAST BUT UNSURE OF NAME. STATES NO PREFERENCE AND AGREEABLE WITH [facility]. CALL PLACED TO [facility] AND SPOKE WITH [facility] FOR REFERRAL. REFERRAL FAXED WITH [facility]. PT AND PT DAUGHTER AWARE AND IN AGREEMENT. DR WILDER AND ERNIE RN AWARE.
--- NOTE | 2016-11-09 13:32 | NUR ---
NURSING NOTE: ASSISTED ED RN WITH ENTERING DATES/TIMES FOR MEDICATIONS BECAUSE NO ACCESS OF INPATIENT DC SCREEN. DRY PRIMER POWDER BLENDER AWARE OF [facility].
--- NOTE | 2016-11-09 13:59 | PN- Housestaff ---
Assessment/Plan Assessment: Assessment: 89 year old female with past medical history of melanoma, hypertension, hyperlipidemia and dementia who presents to the ED after an unwitnessed fall at home. #Unwitnessed fall: patient denies any prodromal symptoms associated with fall, history was hard to be obtained as the patient is [place]ene[place] speaking , will confirm with the family Monitor on telemetry will rule out arrhythmia/vasovagal syncope/orthostatic hypotension Check orthostatic vital signs Follow up troponin/EKG, first was negative for ischemia or arrythmia Continue ASA and Imdur Cardiology consult Consider echocardiogram and carotid doppler #Acute Kidney Injury: improved Cr 0.8<---1.1 currently, [place] likely prerenal, dehydration may have contributed to fall, will hydrate and reassess Hold JOYA inhibitor NS @ 75cc/hr Trend renal function, BUN and Cr # Hypertension: Continue Imdur, lisinopril on hold # Asymptomatic bacteriuria: Patient had urinalysis suggestive of infection DC antibiotics as per Dr Hollins Urine culture will follow up 5. Hyperlipidemia: Statin therapy, lipitor 40mg 6. Continue home medications: Celexa and Prilosec PT Evaluation Heart healthy diet
--- NOTE | 2016-11-09 14:12 | NUR ---
PT CLEARED FOR DISCHARGE AND DISCHARGED TO HOME WITH FAMILY ALL DISCHARGE INSTRUCTIONS GIVEN PT AND FAMILY VERBALIZES UNDERSTANDING
== END 2016-11-09 14:00 | DRG 684 ==
LOC: ERH 17:17 → ERHI 20:35
PROVIDERS: Internal Medicine; Physician Assistant; ADMIT Internal Medicine
DX: N17.9 Acute kidney failure, unspecified (principal); E86.0 Dehydration; F03.90 Unspecified dementia, unspecified severity, without behavioral disturbance, psychotic disturbance, mood disturbance, and anxiety; I10 Essential (primary) hypertension; E78.5 Hyperlipidemia, unspecified; Z85.820 Personal history of malignant melanoma of skin
CPT/HCPCS: ERO; 73562-LT; 81001; 82436; 87086; 93005; 93010; 97116-GO; 97161-GP; J0696; J1644